=== PATIENT | male | born 1945 | race Caucasian/White ===

== ENCOUNTER 2018-04-25 22:46 | Observation (INO) | payer OTHER, MEDICARE ==
[2018-04-25] MEDS ORDERED: NS 1,000 ML IV ONE (23:01)
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
[2018-04-25] MEDS ORDERED: DILTIAZEM 25 MG/5 ML VIAL IVP ONE (23:15)
--- NOTE | 2018-04-25 23:19 | CPEKG ---
Heart Rate: 141 RR Interval: 426 QRSD Interval: 98 QT Interval: 316 QTC Interval: 484 QRS [place]: -65 T Wave [place]: 63 EKG Severity - ABNORMAL ECG - EKG Impression: ATRIAL FIBRILLATION EKG Impression: LEFT ANTERIOR FASCICULAR BLOCK EKG Impression: BORDERLINE PROLONGED QT INTERVAL Electronically Signed By: Eladio Bush 26-Apr-2018 06:54:04
[2018-04-25 23:29] LABS: PLATELET COUNT 236 10^3/uL (150-400)
[2018-04-25 23:37] LABS: INR 0.97 (0.83-1.16); PROTIME(PATIENT) 13.1 SEC (12.0-15.0)
[2018-04-26] MEDS ORDERED: ASPIRIN EC 325 MG TAB PO ONE (00:44)
--- NOTE | 2018-04-26 00:48 | CPEKG ---
Heart Rate: 72 RR Interval: 833 P-R Interval: 152 QRSD Interval: 100 QT Interval: 380 QTC Interval: 416 P [place]: 14 QRS [place]: -61 T Wave [place]: 12 EKG Severity - ABNORMAL ECG - EKG Impression: SINUS RHYTHM EKG Impression: LEFT ANTERIOR FASCICULAR BLOCK EKG Impression: ABNRM R PROG, CONSIDER ASMI OR LEAD PLACEMENT Electronically Signed By: Eladio Bush 26-Apr-2018 06:53:43
[2018-04-26] MEDS ORDERED: HYDROCODONE/APAP 5/325 TAB PO PRN (00:57)
[2018-04-26] MEDS ORDERED: ONDANSETRON 4 MG/2 ML VIAL IVP PRN (00:57)
[2018-04-26] MEDS ORDERED: ACETAMINOPHEN 325 MG TAB PO PRN (00:57)
[2018-04-26] MEDS ORDERED: NS 1,000 ML IV SCH (01:00)
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
[2018-04-26 08:07] VITALS: BP 94/64
[2018-04-26] MEDS ORDERED: METOPROLOL TARTRATE 25 MG TAB PO SCH (12:45)
--- NOTE | 2018-04-26 12:57 | ECHO ---
[email or web address] [address] [address] Main: [phone] Fax: Transthoracic Echocardiogram Name: DMITRI MACKAY MR#: [id number] Study Date: 04/26/2018 Study Time: 11:44 AM Date of : 1945 Age: 72 year(s) Height: 188 cm (74 in.) Weight: 84.37 kg (186 lb.) BSA: 2.11 m2 Gender: Male Examination: Echo Indication: A FIB Image Quality: Adequate Contrast: Requested by: Mark Mcmanus BP: 94 mmHg/64 mmHg Heart Rate: Rhythm: Indication: A FIB Procedure Staff Steam Shovel Oiler: Irlanda Garcia [facility] Reading Physician: Boone Taylor MD Requesting Provider: Conclusions: Normal size left ventricle. No LV hypertrophy. Normal global systolic LV function. EF is 59 %. No regional wall motion abnormality. Normal diastolic LV function. Normal size right ventricle. Normal RV function. The left atirum is borderline dilated. The right atrium is normal in size. The mitral valve is normal in appearance and function. Mild mitral valve regurgitation is present. No mitral stenosis is present. The aortic valve is tri-leaflet. Trivial aortic valve regurgitation. No aortic valve stenosis is present. The tricuspid valve is normal in appearance and function. Mild tricuspid regurgitation is present. The pulmonary artery pressure is normal. Right ventricular systolic pressure measures 16mmHg. The pulmonic valve is normal in appearance and function. There is no pulmonic regurgitation seen. The aorta is normal. Normal size ascending aorta measuring 3.3 cm. The IVC is normal sized. Measurements: Chambers Valvular Assessment AV/MV Valvular Assessment TV/PV Patient: DMITRI MACKAY Study Date: 04/26/2018 Page 1 of 3 11:44 AM Normal Normal Normal Name Value Range Name Value Range Name Value Range IVSd (2D): 1.0 cm (0.6 cm-1.1 AV Vmax: 1.40 m/s (1 m/s-1.7 TR Vmax: 1.63 mm/s ( - ) cm) m/s) TR PGmax: 11 mmHg ( - ) LVDd (2D): 5.1 cm (4.2 cm-5.9 AV maxP mmHg ( - ) syst. PAP: 16 mmHg ( - ) cm) AV meanP mmHg ( - ) PV Vmax: 0.98 m/s (0.6 m/s-0.9 LVDs (2D): 3.3 cm (2.1 cm-4 SANDY (VTI): 2.2 cm ( - ) m/s) cm) MV E Vmax: 0.71 m/s ( - ) PV PGmax: 4 mmHg ( - ) LVPWd (2D): 1.0 cm (0.6 cm-1 MV A Vmax: 0.49 m/s ( - ) cm) MV E/A: 1.45 ( - ) LVOTd 2.2 cm 2.2 cm mm MV PHT: 0.068 s ( - ) LVEF (BP): 59 % (>=55 %) MVA (PHT): 3.2 s ( - ) RVDd(2D): 3.2 cm (1.9 cm-3.8 cmmm) Continued Measurements: Chambers Valvular Assessment AV/MV Valvular Assessment TV/PV Name Value Name Value Name Value LADs: 3.4 cm MV DecTime: 229 m/s CVP (est.): 5 mmHg LADs Lon.2 cm MV E' Septal: 0.07 m/s LA Area: 23.7 cm2 MV E/E' Septal: 10.60 LA Volume: 73 ml MV E/E' Lateral: 8.20 LA Volume Index: 34.6 ml/m2 RA Area: 20.2 cm2 Additional Vessels Name Value Ao Ascendin.3 cm Inferior Vena Cava: 1.4 cm Findings: Left Ventricle: Normal size left ventricle. No LV hypertrophy. Normal global systolic LV function. EF is 59 %. No regional wall motion abnormality. Normal diastolic LV function. Right Ventricle: Normal size right ventricle. Normal RV function. Left Atrium: The left atirum is borderline dilated. Right Atrium: The right atrium is normal in size. Mitral Valve: The mitral valve is normal in appearance and function. Mild mitral valve regurgitation is present. No mitral stenosis is present. Aortic Valve: The aortic valve is tri-leaflet. Trivial aortic valve regurgitation. No aortic valve stenosis is present. Tricuspid Valve: The tricuspid valve is normal in appearance and function. Mild tricuspid regurgitation is present. The pulmonary artery pressure is normal. Right ventricular systolic pressure measures 16mmHg. Pulmonic Valve: The pulmonic valve is normal in appearance and function. There is no pulmonic regurgitation seen. Aorta: The aorta is normal. Normal size ascending aorta measuring 3.3 cm. IVC: The IVC is normal sized. Pericardium: No pericardial effusion. No pleural effusion. Patient: DMITRI MACKAY Study Date: 04/26/2018 Page 2 of 3 11:44 AM (No Signature Object) Patient: DMITRI MACKAY Study Date: 04/26/2018 Page 3 of 3 11:44 AM [id number]
[2018-04-26] MEDS ORDERED: ASPIRIN 81 MG CHEWABLE TAB PO SCH (13:15)
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
--- NOTE | 2018-04-26 17:13 | PDDCSUM ---
Discharge Summary Discharge Summary: 72 yo male admitted with new onset Afib. He converted back to SR with Diltiazem x 2. His Echo was essentially unremarkable. Cardiology was consulted. He will follow up with them. Plan is as follows: -start Metoprolol -start Aspirin. no need for additional AC at this time. start aspirin 81mg daily. CHADS-VASC IS 2 for age -f/u with cards for event monitor and outpatient nuclear stress kristen -TSH was ok DDX: #new onset Afib Exam: NAD AAOX3 RRR CTA B S/NT/ND MEDS: SEE MED REC TOTAL TIME SPENT ON D/C INCLUDING DISCUSSION WITH THE REST OF THE TEAM IS 35 MINS.
== END 2018-04-26 15:10 | disposition home or self-care (01) ==
LOC: F2W 04-26 01:33
PROVIDERS: ADMIT Family Medicine; ATTEND Family Medicine
DX: I48.0 Paroxysmal atrial fibrillation (principal); E86.9 Volume depletion, unspecified; F32.9 Major depressive disorder, single episode, unspecified; Z87.820 Personal history of traumatic brain injury; E03.9 Hypothyroidism, unspecified; Z87.828 Personal history of other (healed) physical injury and trauma
CPT/HCPCS: 71045; 93005; 93306; 96361; 96374; 99285; G0378; 84484-PO

== ENCOUNTER → 2018-05-01 | Outpatient (CLI) | payer OTHER, MEDICARE | LOC: BHFA 13:00 | PROVIDERS: ATTEND Internal Medicine Cardiovascular Disease | DX: I48.0 Paroxysmal atrial fibrillation (principal); R42 Dizziness and giddiness | CPT/HCPCS: 78452; 93017; A9500 ==